=== PATIENT | female | born 1945 | race Caucasian/White ===

== ENCOUNTER 2018-12-16 08:42 | Emergency (ER) | payer MEDICARE, BC ==
--- NOTE | 2018-12-16 09:20 | ERPHSYRPT ---
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 pt states she typically awakens every morning dizzy and this am the dizziness lasted a little longer. pt stood up and walked any way and fell as she was walking. pt states she had severe stomach pains after she took codeine in the past. she states she has had percocet in the past without issues as she recalls. Occurred: this morning Reason for Fall: became dizzy Injuries/Pain Location: head, chest (right posterolateral ribs), back, lower Loss of Consciousness: no loss of consciousness Quality: sharpness, stabbing Severity of Pain-Max: moderate Severity of Pain-Current: moderate Modifying Factors: Improves With: movement Associated Symptoms (Fall): back pain, headache, other (right rib pain) Allergies/Adverse Reactions: prochlorperazine [From Compazine] Allergy (Severe, Verified 12/16/18 09:01) "COULDN'T TALK" codeine Allergy (Mild, Verified 12/16/18 09:01) STOMACH CRAMPS Home Medications: Latanoprost 2.5 ml OP DAILY 02/01/16 [History] Sotalol HCl [Sotalol] 120 mg PO BID 12/16/18 [History] Hx Tetanus, Diphtheria Vaccination/Date Given: No - Review of Systems Constitutional: No Symptoms Eyes: No Symptoms Ears, Nose, & Throat: No Symptoms Respiratory: No Symptoms Cardiac: No Symptoms Abdominal/Gastrointestinal: No Symptoms Genitourinary Symptoms: No Symptoms Musculoskeletal: Back Pain Skin: No Symptoms Neurological: Headache Psychological: No Symptoms Endocrine: No Symptoms Hematologic/Lymphatic: No Symptoms Immunological/Allergic: No Symptoms All Other Systems: Reviewed and Negative - Past Medical History Pertinent Past Medical History: Yes Neurological History: Seizures ENT History: Glaucoma Cardiac History: Arrhythmia Respiratory History: Asthma, Pneumonia Endocrine Medical History: No Pertinent History Musculoskeletal History: Arthritis GI Medical History: No Pertinent History History: No Pertinent History Psycho-Social History: No Pertinent History Female Reproductive Disorders: No Pertinent History - Past Surgical History Past Surgical History: Yes Neuro Surgical History: No Pertinent History Cardiac: Pacemaker Respiratory: No Pertinent History Gastrointestinal: Cholecystectomy Genitourinary: No Pertinent History Musculoskeletal: No Pertinent History Female Surgical History: No Pertinent History Other Surgical History: COLPOSCOPY, EYES. 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 coposcopy approx 10-15 yrs ago - Social History Smoking Status: Never smoker Exposure to second hand smoke: No Drug Use: none Patient Lives Alone: Yes - Female History Hx Now: No - Nursing Vital Signs Nursing Vital Signs: Initial Vital Signs Temperature 98.0 F 12/16/18 08:46 Pulse Rate 67 12/16/18 08:46 Respiratory Rate 20 12/16/18 08:46 Blood Pressure 174/89 12/16/18 08:46 O2 Sat by Pulse Oximetry 100 12/16/18 08:46 Pain Scale Pain Intensity [Back] 9 Pain Intensity 9 - [place] Coma Score Best Eye Response ([place]): (4) open spontaneously Best Verbal Response (Jai): (5) oriented Best Motor Response (Jai): (6) obeys commands [place] Total: 15 - Physical Exam General Appearance: mild distress, alert, anxiety Head Injury: no evidence of injury Eye Exam: PERRL/EOMI, eyes nml inspection ENT Exam: airway nml, nml ext.inspection Neck Exam: supple, trachea midline, full range of motion, normal alignment, normal inspection, No focal neuro deficit, No limited range of motion Respiratory/Chest Exam: normal breath sounds, rib tenderness (right posterolateral), No respiratory distress, No ecchymosis, No crepitus Cardiovascular Exam: normal heart sounds, regular rate/rhythm Gastrointestinal Exam: soft, normal bowel sounds, No tenderness Rectal Exam: not done Back Exam: normal inspection, normal range of motion, No CVA tenderness, No vertebral tenderness Extremity Exam: normal inspection, normal range of motion, pelvis stable Neurologic Exam: alert, oriented x 3, cooperative, 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 as tested, normal mood/affect Skin Exam: normal color, warm, dry SpO2 Interpretation: normal SpO2: 100 O2 Delivery: Room Air - Course Nursing assessment & vital signs reviewed: Yes Ordered Tests: Active Orders 24 hr Category Date Time Status HEAD WITHOUT CONTRAST [CT] Stat Exams 12/16/18 09:20 Completed LUMBAR LIMITED (2 OR 3 VIEWS) Stat Exams 12/16/18 09:21 Completed RIBS UNILATERAL Stat Exams 12/16/18 09:21 Completed Medication Summary Generic Name Dose Route Start Last Admin Trade Name Freq PRN Reason Stop Dose Admin Oxycodone/Acetaminophen 1 tab 12/16/18 10:41 Percocet Tablet 5/325mg PO 12/16/18 10:42 STAT STA - Progress Progress: unchanged, pain not gone completely, re-examined Progress Note: 12/16/18 10:43 ct head-negative rib xray-acute minimally displaced right rib fx 6,7,8 lumbar xray-negative for acute subluxation or fx Counseled pt/family regarding: diagnosis, need for follow-up, rad results - Departure Departure Disposition: Home Clinical Impression: Fall, Ribs, multiple fractures Condition: Stable Critical Care Time: No Referrals: BARTOLOME VILLA [Primary Care Provider] - Additional Instructions: apply ice to right ribs 3 times daily for 3 days. follow up with primary doctor for further management Prescriptions: Oxycodone HCl/Acetaminophen [Percocet 5-325 mg Tablet] 1 each PO Q12H PRN PRN # 10 tablet MDD 2 PRN Reason: Pain Cyclobenzaprine HCl 10 mg [Cyclobenzaprine 10 MG] 10 mg PO BID #10 tablet
--- NOTE | 2018-12-16 10:15 | XRAY ---
Exam: CT of the head without IV contrast from 12/16/2018. CTDI: 51.17 mGy Comparison: None. Indication: 73-year-old female fell striking posterior right side of head, patient is taking blood thinners. Technique: Non-IV contrast axial images were obtained through the brain. Reconstructed coronal and sagittal images were created and reviewed. Findings: The ventricles appear of normal size. No focal mass effect or midline shift is seen. I see no acute intracranial bleed or abnormal extra-axial fluid collection to suggest a subdural or epidural hematoma. Subtle deep white matter changes are seen within the bilateral periventricular and subcortical white matter suggesting minor microvascular disease. No discrete territorial low attenuation infarct or focal edema is seen. The cortical sulci and basilar cisterns appear unremarkable. I see no evidence of fracture of the calvarium of the skull. Minimal superficial soft tissue density is seen near the skin line within the upper posterior right side of the scalp. This might represent minimal focal scalp contusion. Correlate clinically. The visualized paranasal sinuses and mastoid air cells appear unremarkable. No mastoid effusion is seen. The orbits reveal no significant abnormality. Impression: 1. No acute intracranial bleed or other acute intracranial process is seen. 2. The calvarium of the skull appears intact revealing no skull fracture.
--- NOTE | 2018-12-16 10:19 | XRAY ---
Exam: 4 view right rib series from 12/16/2018. Comparison: None. Indication: 73-year-old female fell, complains of pain within right lower ribs. Findings: 2 AP images and both oblique views of the right rib cage were obtained. There are minimally displaced fractures of the posterior aspect of the right sixth rib and the posterior lateral aspect of the right eighth rib. In addition, there is a nondisplaced fracture of the posterior lateral aspect of the right seventh rib. I see no other right rib fracture or focal bone lesion. No pneumothorax or pleural effusion is seen. I believe there is minimal subsegmental atelectasis within the right lateral costophrenic angle projection. A small calcified granuloma is seen within the peripheral right upper lung field. The bones are demineralized. A portion of the left-sided cardiac pacemaker is seen. The lungs are hyperinflated. Mild double S-curve scoliosis within the thoracolumbar spine is seen. This is most pronounced at T12-L1 toward the right and L4 towards the left. Impression: 1. Acute appearing fractures of the posterior/posterior lateral right sixth, seventh, and eighth ribs, as discussed above. 2. Minimal atelectasis is seen within the right lateral costophrenic angle. 3. The lungs are somewhat hyperinflated. Correlate clinically regarding COPD.
--- NOTE | 2018-12-16 10:35 | XRAY ---
Exam: 3 view lumbar spine series from 12/16/2018. Comparison: None. Indication: Fall, low back pain. Findings: AP, lateral, and coned-down lateral film of the lumbosacral junction were obtained. There are 5 [id number] lumbar-type vertebra. There appears to be minimal dextroscoliosis centered at the thoracolumbar junction. There is also mild rotary levoscoliosis centered at L4. The bones are demineralized. I see no acute lumbar spine compression fracture. I believe there is minimal anterior subluxation of L4 with respect to both L3 and L5. This is likely due to posterior facet joint arthropathy which can be seen at the lower 3 lumbar interspace levels, greatest at L4-L5 and L5-S1. No definite spondylolysis is seen on the lateral images submitted. Some surgical clips are seen within the mid right paralumbar projection. Correlate with prior surgical history. No bone destruction is seen. The sacroiliac joints appear grossly unremarkable. Impression: 1. No acute lumbar spine compression fracture is seen. 2. There is minimal anterior subluxation of L4 with respect to both L3 and L5 on the lateral images. I believe this is most likely due to posterior facet joint arthropathy. See above. 3. Bone demineralization. 4. Mild S-shaped convexity within the lower thoracolumbar spine, as discussed above.
[2018-12-16] MEDS ORDERED: PERCOCET TABLET 5/325MG PO STA (10:41)
[2018-12-16] MEDS ORDERED: PERCOCET TABLET 5/325MG ONE (10:48)
[2018-12-16 10:53] VITALS: BP 171/80; PULSE 74; O2SAT 99
== END 2018-12-16 11:28 | disposition home or self-care (01) ==
LOC: ED 08:42
DX: S22.49XA Multiple fractures of ribs, unspecified side, initial encounter for closed fracture (principal); W01.190A Fall on same level from slipping, tripping and stumbling with subsequent striking against furniture, initial encounter; Z79.01 Long term (current) use of anticoagulants; S09.90XA Unspecified injury of head, initial encounter; G40.909 Epilepsy, unspecified, not intractable, without status epilepticus
CPT/HCPCS: 70450; 71100; 72100; 99284; A9270-GY

== ENCOUNTER 2023-08-30 08:20 | Observation (INO) | payer MEDICARE, BC ==
--- NOTE | 2023-08-30 08:53 | ERPHSYRPT ---
- History of Present Illness Time Seen by Provider: 08/30/23 08:45 Source: patient, family Exam Limitations: no limitations Patient Subjective Stated Complaint: pt c/o of afib since last night Triage Nursing Assessment: Pt brought to the ER by her , tachycardic with a fib, denies pain, pulses normal, skin n/w/d, slight dizziness, denies N&V, denies LOC, sees Dr. Pena for cardiology, has pacemaker with a battery, 10+ year history of afib Physician History: This is an 78-year-old white female patient who has known atrial fibrillation for approximately 10 years. Patient's primary care provider is Dr. Patiño and her national sales executive is Dr. Pena out of [facility]. Patient is on Xarelto and sotalol. Patient states that last night she noticed her heart racing a bit. She does not have chest pain and she denies shortness of breath. She was a little dizzy. Patient arrives to the emergency department today with atrial fibrillation and RVR with a heart rate in the 120s. Her systolic blood pressure is also in the 120s. Patient states that she has a pacemaker in place but it has a battery. Patient has no abdominal pain. She denies nausea vomiting diarrhea symptoms. Timing/Duration: yesterday Activities at Onset: none Quality: other (Denies chest pain) Severity of Pain-Max: none Severity of Pain-Current: none Nitro Today/Relief: no nitro taken today Aspirin Treatment Today: no aspirin today Associated Symptoms: denies symptoms (She is on Xarelto) Prior Chest Pain/Cardiac Workup: cardiac cath, echocardiography Allergies/Adverse Reactions: prochlorperazine [From Compazine] Allergy (Severe, Verified 08/30/23 08:41) "COULDN'T TALK" codeine Allergy (Mild, Verified 08/30/23 08:41) STOMACH CRAMPS Home Medications: Sotalol HCl [Sotalol] 120 mg PO BID 12/16/18 [History] Alendronate Sodium 70 mg [Fosamax 70 MG] 70 mg PO Q7D@0600 08/30/23 [History] Cholecalciferol (Vitamin D3) [Vitamin D3] 125 mcg PO DAILY 08/30/23 [History] Cyanocobalamin (Vitamin B-12) [Vitamin B-12] 1,000 mcg PO DAILY 08/30/23 [History] Hx Tetanus, Diphtheria Vaccination/Date Given: No Hx Influenza Vaccination/Date Given: Yes Hx Pneumococcal Vaccination/Date Given: Yes Travel Risk - International Travel Have you traveled outside of the country in past 3 weeks: No - Emerging Infectious Disease Are you exhibiting symptoms associated with any current EIDs: No - Review of Systems Constitutional: No Symptoms Eyes: No Symptoms Ears, Nose, & Throat: No Symptoms Respiratory: No Symptoms Cardiac: No Symptoms Abdominal/Gastrointestinal: No Symptoms Genitourinary Symptoms: No Symptoms Musculoskeletal: No Symptoms Skin: No Symptoms Neurological: Dizziness (Slight dizziness onset last evening) Psychological: No Symptoms Endocrine: No Symptoms Hematologic/Lymphatic: No Symptoms Immunological/Allergic: No Symptoms All Other Systems: Reviewed and Negative - Past Medical History Pertinent Past Medical History: Yes Neurological History: Seizures ENT History: Glaucoma Cardiac History: Arrhythmia Respiratory History: Asthma, Pneumonia Endocrine Medical History: No Pertinent History Musculoskeletal History: Arthritis GI Medical History: No Pertinent History History: No Pertinent History Psycho-Social History: No Pertinent History Female Reproductive Disorders: No Pertinent History - Past Surgical History Past Surgical History: Yes Neuro Surgical History: No Pertinent History Cardiac: Pacemaker Respiratory: No Pertinent History Gastrointestinal: Cholecystectomy Genitourinary: No Pertinent History Musculoskeletal: No Pertinent History Female Surgical History: No Pertinent History Other Surgical History: COLPOSCOPY, EYES. 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 coposcopy approx 10-15 yrs ago - Social History Smoking Status: Never smoker Exposure to second hand smoke: No Drug Use: none Patient Lives Alone: Yes - Social Determinants of Health Will the patient participate in the screening: Yes Do you worry about a steady place to live?: No Do you have any problems with any of the following?: No known problems In the past 12 months,have you had to go without utilities?: No Transportation Issues: No Has anyone in your support network made you feel unsafe?: No Have you or anyone in your house had to go without enough: No - Nursing Vital Signs Nursing Vital Signs: Initial Vital Signs Temperature 96.7 F 08/30/23 08:35 Pulse Rate 126 H 08/30/23 08:35 Respiratory Rate 16 08/30/23 08:35 Blood Pressure 123/95 08/30/23 08:35 O2 Sat by Pulse Oximetry 100 08/30/23 08:35 Pain Scale Pain Intensity 0 - Physical Exam General Appearance: no apparent distress, alert, anxiety Eye Exam: PERRL/EOMI, eyes nml inspection Ears, Nose, Throat Exam: normal ENT inspection, moist mucous membranes Neck Exam: normal inspection, non-tender, supple, full range of motion Respiratory Exam: normal breath sounds, lungs clear, No chest tenderness, No respiratory distress Cardiovascular Exam: tachycardia, irregular Gastrointestinal/Abdomen Exam: soft, normal bowel sounds, No tenderness Pelvic Exam: not done Rectal Exam: not done Back Exam: normal inspection, normal range of motion, No CVA tenderness, No prasanna tebral tenderness Extremity Exam: normal inspection, normal range of motion, pelvis stable Neurologic Exam: alert, oriented x 3, cooperative, flight radio officer II-XII nml as tested, normal mood/affect, nml cerebellar function, nml station & gait, sensation nml Skin Exam: normal color, warm, dry Lymphatic Exam: No adenopathy SpO2 Interpretation: normal SpO2: 100 O2 Delivery: Room Air - Course Nursing assessment & vital signs reviewed: Yes EKG Interpreted by Me: RATE (125), A-fib, NORMAL AXIS, NORMAL INTERVALS, NORMAL QRS, Other (PVC present. No acute ischemia on today's twelve-lead EKG. QTc is 41) Ordered Tests: Active Orders 24 hr Category Date Time Status Anodic Treater STAT Care 08/30/23 08:53 Active EKG-ER Only STAT Care 08/30/23 08:52 Active IV Insertion STAT Care 08/30/23 08:52 Active Pulse Oximetry (ED) STAT Care 08/30/23 08:52 Active CBC W DIFF Stat Lab 08/30/23 09:19 Completed CMP Stat Lab 08/30/23 09:19 Completed MAGNESIUM Stat Lab 08/30/23 09:19 Completed NT PRO BNPII Stat Lab 08/30/23 09:19 Completed TROPONIN Q4H Lab 08/30/23 09:19 Completed TROPONIN Q4H Lab 08/30/23 11:30 Completed TROPONIN Q4H Lab 08/30/23 17:00 Ordered TSH [TSH, 3RD Generation] Stat Lab 08/30/23 08:30 Completed UA W/RFX UR CULTURE Stat Lab 08/30/23 09:09 Ordered Medication Summary Generic Name Dose Route Start Last Admin Trade Name Freq PRN Reason Stop Dose Admin Sodium Chloride 500 mls @ 100 mls/hr 08/30/23 10:00 08/30/23 10:25 Sodium Chloride 0.9% 500 Ml IV 09/29/23 09:59 Not Given .Q5H CARLY Sodium Chloride 1,000 mls @ 100 mls/hr 08/30/23 10:30 08/30/23 10:29 Sodium Chloride 0.9% 1000 Ml IV 09/29/23 10:29 100 mls/hr .Q10H CARLY Administration Discontinued Medications Generic Name Dose Route Start Last Admin Trade Name Randal PRN Reason Stop Dose Admin Diltiazem HCl 15 mg 08/30/23 09:53 08/30/23 10:06 Diltiazem Hcl Iv 5 Mg/Ml Vial IV 08/30/23 09:54 15 mg STAT ONE Administration Diltiazem HCl Confirm 08/30/23 10:01 Diltiazem Hcl Iv 5 Mg/Ml Vial Administered 08/30/23 10:02 Dose 50 mg IV .STK-MED ONE Sodium Chloride Confirm 08/30/23 10:01 Sodium Chloride 0.9% 1000 Ml Administered 08/30/23 10:02 Dose 1,000 mls @ ud .ROUTE .STK-MED ONE Metoprolol Tartrate 5 mg 08/30/23 08:52 08/30/23 09:21 Metoprolol Tartrate 5 Mg/5 Ml Vial IV 08/30/23 08:53 5 mg STAT ONE Administration Metoprolol Tartrate Confirm 08/30/23 09:11 Metoprolol Tartrate 5 Mg/5 Ml Vial Administered 08/30/23 09:12 Dose 5 mg IV .STK-MED ONE Lab/Rad Data: Laboratory Result Diagrams 08/30/23 09:19 08/30/23 09:19 Laboratory Results 08/30/23 08/30/23 08/30/23 Range/Units 11:30 09:19 09:19 WBC (3.98-10.04) x10^3/uL RBC (3.93-5.22) x10^6/uL Hgb (11.2-15.7) g/dL Hct (34.1-44.9) % MCV (79.4-94.8) fL MCH (25.6-32.2) pg MCHC (32.2-35.5) g/dL RDW (11.7-14.4) % Plt Count (182-369) x10^3/uL MPV (9.4-12.3) fL Gran % (34.0-71.1) % Immature Gran % (Auto) (0.001-0.429) % Nucleat RBC Rel Count (0.00-0.2) % Eos # (Auto) (0.04-0.36) x10^3/uL Immature Gran # (Auto) (0.001-0.031) x10^3u/L Absolute Lymphs (auto) (1.18-3.74) x10^3/uL Absolute Monos (auto) (0.24-0.86) x10^3/uL Absolute Nucleated RBC (0.00-0.012) x10^3u/L Lymphocytes % (19.3-51.7) % Monocytes % (4.7-12.5) % Eosinophils % (0.7-5.8) % Basophils % (0.1-1.2) % Absolute Granulocytes (1.56-6.13) x10^3/uL Basophils # (0.01-0.08) x10^3/uL Sodium (135-145) mmol/L Potassium (3.5-5.1) mmol/L Chloride (98-107) mmol/L Carbon Dioxide (22-30) mmol/L Anion Gap (5-15) MEQ/L BUN (7-17) mg/dL Creatinine (0.52-1.04) mg/dL Estimated GFR ML/MIN Glucose (74-106) mg/dL Calcium (8.4-10.2) mg/dL Magnesium (1.6-2.3) mg/dL Total Bilirubin (0.2-1.3) mg/dL AST (14-36) U/L ALT (0-35) U/L Alkaline Phosphatase (38-126) U/L Troponin I 0.039 H* 0.042 H* (0.000-0.033) ng/mL NT-Pro-B Natriuret Pep 5700 (<300) pg/mL Serum Total Protein (6.3-8.2) g/dL Albumin (3.5-5.0) g/dL Free T4 (0.78-2.19) ng/dL TSH 3rd Generation (0.470-4.680) mIU/L 08/30/23 08/30/23 08/30/23 Range/Units 09:19 09:19 08:30 WBC 6.9 (3.98-10.04) x10^3/uL RBC 4.09 (3.93-5.22) x10^6/uL Hgb 13.1 (11.2-15.7) g/dL Hct 40.1 (34.1-44.9) % MCV 98.0 H (79.4-94.8) fL MCH 32.0 (25.6-32.2) pg MCHC 32.7 (32.2-35.5) g/dL RDW 13.0 (11.7-14.4) % Plt Count 264 (182-369) x10^3/uL MPV 9.9 (9.4-12.3) fL Gran % 75.0 H (34.0-71.1) % Immature Gran % (Auto) 0.1 (0.001-0.429) % Nucleat RBC Rel Count 0.0 (0.00-0.2) % Eos # (Auto) 0.07 (0.04-0.36) x10^3/uL Immature Gran # (Auto) 0.01 (0.001-0.031) x10^3u/L Absolute Lymphs (auto) 1.13 L (1.18-3.74) x10^3/uL Absolute Monos (auto) 0.49 (0.24-0.86) x10^3/uL Absolute Nucleated RBC 0.00 (0.00-0.012) x10^3u/L Lymphocytes % 16.4 L (19.3-51.7) % Monocytes % 7.1 (4.7-12.5) % Eosinophils % 1.0 (0.7-5.8) % Basophils % 0.4 (0.1-1.2) % Absolute Granulocytes 5.16 (1.56-6.13) x10^3/uL Basophils # 0.03 (0.01-0.08) x10^3/uL Sodium 138 (135-145) mmol/L Potassium 4.3 (3.5-5.1) mmol/L Chloride 106 (98-107) mmol/L Carbon Dioxide 21 L (22-30) mmol/L Anion Gap 15.0 (5-15) MEQ/L BUN 20 H (7-17) mg/dL Creatinine 1.23 H (0.52-1.04) mg/dL Estimated GFR 44.4 ML/MIN Glucose 108 H (74-106) mg/dL Calcium 9.2 (8.4-10.2) mg/dL Magnesium 2.1 (1.6-2.3) mg/dL Total Bilirubin 0.70 (0.2-1.3) mg/dL AST 29 (14-36) U/L ALT 15 (0-35) U/L Alkaline Phosphatase 46 (38-126) U/L Troponin I (0.000-0.033) ng/mL NT-Pro-B Natriuret Pep (<300) pg/mL Serum Total Protein 7.6 (6.3-8.2) g/dL Albumin 4.6 (3.5-5.0) g/dL Free T4 1.17 (0.78-2.19) ng/dL TSH 3rd Generation (0.470-4.680) mIU/L 08/30/23 Range/Units 08:30 WBC (3.98-10.04) x10^3/uL RBC (3.93-5.22) x10^6/uL Hgb (11.2-15.7) g/dL Hct (34.1-44.9) % MCV (79.4-94.8) fL MCH (25.6-32.2) pg MCHC (32.2-35.5) g/dL RDW (11.7-14.4) % Plt Count (182-369) x10^3/uL MPV (9.4-12.3) fL Gran % (34.0-71.1) % Immature Gran % (Auto) (0.001-0.429) % Nucleat RBC Rel Count (0.00-0.2) % Eos # (Auto) (0.04-0.36) x10^3/uL Immature Gran # (Auto) (0.001-0.031) x10^3u/L Absolute Lymphs (auto) (1.18-3.74) x10^3/uL Absolute Monos (auto) (0.24-0.86) x10^3/uL Absolute Nucleated RBC (0.00-0.012) x10^3u/L Lymphocytes % (19.3-51.7) % Monocytes % (4.7-12.5) % Eosinophils % (0.7-5.8) % Basophils % (0.1-1.2) % Absolute Granulocytes (1.56-6.13) x10^3/uL Basophils # (0.01-0.08) x10^3/uL Sodium (135-145) mmol/L Potassium (3.5-5.1) mmol/L Chloride (98-107) mmol/L Carbon Dioxide (22-30) mmol/L Anion Gap (5-15) MEQ/L BUN (7-17) mg/dL Creatinine (0.52-1.04) mg/dL Estimated GFR ML/MIN Glucose (74-106) mg/dL Calcium (8.4-10.2) mg/dL Magnesium (1.6-2.3) mg/dL Total Bilirubin (0.2-1.3) mg/dL AST (14-36) U/L ALT (0-35) U/L Alkaline Phosphatase (38-126) U/L Troponin I (0.000-0.033) ng/mL NT-Pro-B Natriuret Pep (<300) pg/mL Serum Total Protein (6.3-8.2) g/dL Albumin (3.5-5.0) g/dL Free T4 (0.78-2.19) ng/dL TSH 3rd Generation 1.965 (0.470-4.680) mIU/L - Progress Progress: improved, re-examined Air Movement: good Progress Note: 08/30/23 11:26 My medical decision making and the assignment of moderate complexity to this patient's medical issue is based on review of the patient's past medical history, review of the patient's medication list, review the patient drug allergy list, history present illness and physical findings on examination. This patient's workup includes placement of intravenous line, infusion of beta-[id number] Lopressor, CBC, CMP, twelve-lead EKG, magnesium level, urinalysis, troponin level, BNP The differential diagnosis includes but is not limited to electrolyte abnormalities, A-fib with RVR, congestive heart failure, thyroid abnormalities, anemia, myocardial infarction 08/30/23 11:28 We have placed 2 phone calls to the patient's national sales executive office, Dr. Pena. The office staff attempted to page him. After 20 minutes, he had not called back and we called the office again. They stated that he is off today but he takes his own call. We will wait for the repeat 3-hour troponin level. 08/30/23 12:28 I reviewed and interpreted the patient's laboratory data results. The patient has an elevated troponin level. Is slightly out of the normal range. I think this is more related to the stress of having a rapid heart rate rather than significant coronary artery disease. The repeat troponin level dropped to 0.039 from 0.042. The patient does not have chest pain. Patient's BNP is elevated at 5700. She required some fluid infusion once her blood pressure dropped when we provided her with 15 mg of intravenous Cardizem. The remainder of the laboratory workup does not show any acute or emergent medical issue. I discussed this patient's history present illness, presenting complaint, ph ysical findings and the results of the laboratory and EKG findings and the patient's response to Lopressor and to the Cardizem. He agrees that we will place this patient in observation and continue watching the troponin levels as well as continued medication for treating her A-fib with RVR. 08/30/23 12:[address] Bar regarding the significant drop in the patient's blood pressure with the intravenous Cardizem. He states to put this patient on low- dose, short acting diltiazem oral medication. Blood Culture(s) Obtained: No Antibiotics given: No Counseled pt/family regarding: lab results, diagnosis Medical Desision Making - Independent Historian Additional History obtained from: Spouse - Diagnostic Testing Diagnostic test were ordered, analyzed, and reviewed by me: Yes - Risk of complications The pt has a high risk of morbidity or mortality based on: Decision regarding hospitilization or escalation of hosp level of care - Departure Departure Disposition: Observation Clinical Impression: Atrial fibrillation with RVR, Elevated troponin I level Condition: Fair Critical Care Time: Yes Critical Care Time(excluding separately billable procedures): Critical 30-74 mins (60 minutes) Referrals: PAULINE PATIÑO [Primary Care Provider] - Follow up/PCP as directed
[2023-08-30] MEDS ORDERED: LOPRESSOR INJECTION IV ONE (09:11)
[2023-08-30 09:19] LABS: Absolute Neutrophil Ct (ANC) 5.16 x10^3/uL (1.56-6.13); BASOPHIL % 0.4 % (0.1-1.2); Basophil (Absolute #) 0.03 x10^3/uL (0.01-0.08); Eosinophil (Absolute #) 0.07 x10^3/uL (0.04-0.36); Hematocrit 40.1 % (34.1-44.9); Hemoglobin 13.1 g/dL (11.2-15.7); IMMATURE GRAN # 0.01 x10^3u/L (0.001-0.031); IMMATURE GRAN % 0.1 % (0.001-0.429); Lymphocyte (Absolute #) 1.13 x10^3/uL (1.18-3.74); Lymphocytes % 16.4 % (19.3-51.7); Mean Corpuscular Hgb Concent. 32.7 g/dL (32.2-35.5); Mean Platelet Volume 9.9 fL (9.4-12.3); Monocyte (Absolute #) 0.49 x10^3/uL (0.24-0.86); Monocytes % 7.1 % (4.7-12.5); Platelet Count 264 x10^3/uL (182-369); Red Blood Count 4.09 x10^6/uL (3.93-5.22); White Blood Count 6.9 x10^3/uL (3.98-10.04)
[2023-08-30] MEDS: LOPRESSOR INJECTION IV ONE (09:21)
[2023-08-30 09:33] LABS: ALBUMIN 4.6 g/dL (3.5-5.0); BILIRUBIN,TOTAL 0.7 mg/dL (0.2-1.3); Calcium 9.2 mg/dL (8.4-10.2); Creatinine 1 1.23 mg/dL (0.52-1.04); EST GLOMERULAR FILTRATION RATE 44.4 ML/MIN; MAGNESIUM 2.1 mg/dL (1.6-2.3); Potassium 4.3 mmol/L (3.5-5.1); Total Protein 7.6 g/dL (6.3-8.2)
[2023-08-30] MEDS ORDERED: Sodium Chloride 0.9% 1000 ML 1,000 ML ONE (10:01)
[2023-08-30] MEDS ORDERED: Cardizem IV 50 MG/10 ML IV ONE (10:01)
[2023-08-30] MEDS: Cardizem IV 50 MG/10 ML IV ONE (10:06)
[2023-08-30] MEDS: Sodium Chloride 0.9% 500 ML 500 ML IV SCH (10:25)
[2023-08-30] MEDS: Sodium Chloride 0.9% 1000 ML 1,000 ML IV SCH ×2 (10:29→15:57)
[2023-08-30 12:42] LABS: Appearance Clear (Clear); Bacteria None Seen /HPF (None Seen); Bilirubin Negative (Negative); Blood Negative (Negative); Epithelial Cells None Seen /HPF (None Seen); Glucose, Urine Negative (Negative); Hyaline Casts NONE SEEN /LPF (0-2); Ketones 15 (Negative); Leukocyte Esterase Negative (Negative); Nitrite Negative (Negative); Ph 6.5 (4.6-8.0); Protein,Urine Dip Negative (Negative); RBC 0-2 /HPF (0-5); Specific Gravity 1.015 (1.005-1.030); Urobilinogen 0.2 mg/dL (0.2); WBC 0-2 /HPF (0-5)
[2023-08-30 12:44] LABS: ADD URINE CULTURE? NO (NO)
[2023-08-30] MEDS: Cardizem 30 MG PO ONE (12:51)
[2023-08-30] MEDS ORDERED: TYLENOL 325 MG PO PRN (14:28)
--- NOTE | 2023-08-30 14:58 | PCM.HP ---
History of Present Illness - Chief Complaint Chief Complaint: A-fib with RVR Date: 08/30/23 History of Present Illness: is an 78-year-old white female patient who has known atrial fibrillation for approximately 10 years. Patient's primary care provider is Dr. Patiño and her rate and cost analyst is Dr. Pena out of [facility]. Patient is on Xarelto and sotalol. Patient states that last night she noticed her heart racing a bit. She does not have chest pain and she denies shortness of breath. She was a little dizzy. Patient arrives to the emergency department today with atrial fibrillation and RVR with a heart rate in the 120s. Her systolic blood pressure is also in the 120s. Patient states that she has a pacemaker in place but it has a battery and has been like this for 10 yrs. She was given oral and IV meds to regulate heart rhythm in ER. Will continue oral medication IP. Cardilogy consulted. Trops trending down. She denies CP, SOB, Abd. pain, N/V/D. - Review of Systems Constitutional: No Fever, No Chills Eyes: No Symptoms Ears, Nose, & Throat: No Symptoms Respiratory: No Cough, No Short Of Breath Cardiac: Palpitations, No Chest Pain, No Edema, No Syncope Abdominal/Gastrointestinal: No Abdominal Pain, No Nausea, No Vomiting, No Diarrhea Genitourinary Symptoms: No Dysuria Musculoskeletal: No Back Pain, No Neck Pain Skin: No Rash Neurological: No Dizziness, No Focal Weakness, No Sensory Changes Psychological: No Symptoms Endocrine: No Symptoms Hematologic/Lymphatic: No Symptoms Immunological/Allergic: No Symptoms Medications & Allergies Home Medications: Home Medication List Rivaroxaban 10 mg Tablet [Xarelto 10 mg Tablet] 20 mg PO DAILY #30 tablet 02/02/16 [Rx Confirmed 08/30/23] Sotalol HCl [Sotalol] 120 mg PO BID 12/16/18 [History Confirmed 08/30/23] Alendronate Sodium 70 mg [Fosamax 70 MG] 70 mg PO Q7D@0600 08/30/23 [History Confirmed 08/30/23] Cholecalciferol (Vitamin D3) [Vitamin D3] 125 mcg PO DAILY 08/30/23 [History Confirmed 08/30/23] Cyanocobalamin (Vitamin B-12) [Vitamin B-12] 1,000 mcg PO DAILY 08/30/23 [History Confirmed 08/30/23] Allergies/Adverse Reactions: Allergies Allergy/AdvReac Type Severity Reaction Status Date / Time prochlorperazine Allergy Severe Verified 08/30/23 08:41 [From Compazine] codeine Allergy Mild Verified 08/30/23 08:41 - Past Medical History Past Medical History: Yes Neurological History: Seizures ENT History: Glaucoma Cardiac History: Arrhythmia Respiratory History: Asthma, Pneumonia Endocrine Medical History: No Pertinent History Musculoskelatal History: Arthritis GI Medical History: No Pertinent History History: No Pertinent History Pyscho-Social History: No Pertinent History Reproductive Disorders: No Pertinent History - Past Surgical History Past Surgical History: Yes Neuro Surgical History: No Pertinent History Cardiac History: Pacemaker Respiratory Surgery: No Pertinent History GI Surgical History: Cholecystectomy Genitourinary Surgical Hx: No Pertinent History Musculskeletal Surgical Hx: No Pertinent History Female Surgical History: No Pertinent History Other Surgical History: COLPOSCOPY, EYES. 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 coposcopy approx 10-15 yrs ago - Social History Smoking Status: Never smoker Exposure to second hand smoke: No Alcohol: Occasionally Drug Use: none - Social Determinants of Health Will the patient participate in the screening: Yes Do you worry about a steady place to live?: No Do you have any problems with any of the following?: No known problems In the past 12 months,have you had to go without utilities?: No Have you or anyone in your house had to go without enough: No Transportation Issues: No Has anyone in your support network made you feel unsafe?: No - Physical Exam Vital Signs: Vital Signs - 24 hr Temp Pulse Resp BP BP Pulse Ox 08/30/23 14:18 97.1 F 123 H 19 115/69 97 08/30/23 13:30 120 H 20 101/81 98 08/30/23 13:15 128 H 15 100/67 97 08/30/23 13:00 123 H 16 104/86 99 08/30/23 12:45 124 H 13 113/83 99 08/30/23 12:40 100 08/30/23 12:15 123 H 16 105/69 100 08/30/23 12:00 125 H 17 109/69 99 08/30/23 11:45 105 H 13 99/65 98 08/30/23 11:15 78 19 98/75 98 08/30/23 11:12 97 H 21 102/69 98 08/30/23 11:00 93 H 17 92/59 08/30/23 10:46 86 19 97/50 100 08/30/23 10:36 78 18 96/53 100 08/30/23 10:30 73 17 80/59 08/30/23 10:19 77 18 79/54 98 08/30/23 10:15 74 22 74/50 98 08/30/23 10:13 67 21 83/46 93 L 08/30/23 10:10 77 38 H 74/44 08/30/23 10:09 89 22 88/60 08/30/23 10:00 91 H 31 H 103/46 100 08/30/23 09:30 117 H 17 101/70 99 08/30/23 09:07 100 08/30/23 09:00 115 H 16 126/97 08/30/23 08:35 96.7 F 126 H 16 123/95 100 General Appearance: no apparent distress, alert Neurologic Exam: alert, oriented x 3, cooperative, normal mood/affect, nml cerebellar function, nml station & gait, sensation nml, No motor deficits Eye Exam: PERRL/EOMI, eyes nml inspection Ears, Nose, Throat Exam: normal ENT inspection, TMs normal, pharynx normal, moist mucous membranes Neck Exam: normal inspection, non-tender, supple, full range of motion Respiratory Exam: normal breath sounds, lungs clear, No respiratory distress Cardiovascular Exam: normal heart sounds, normal peripheral pulses, irregular Gastrointestinal/Abdomen Exam: soft, normal bowel sounds, No tenderness, No mass Back Exam: normal inspection, normal range of motion, No CVA tenderness, No vertebral tenderness Extremity Exam: normal inspection, normal range of motion, pelvis stable Skin Exam: normal color, warm, dry, No rash Lymphatic Exam: No adenopathy Results - Labs Lab/Micro Results: Lab Results-Last 24 Hours 08/30/23 08/30/23 08/30/23 Range/Units 08:30 08:30 09:09 WBC (3.98-10.04) x10^3/uL RBC (3.93-5.22) x10^6/uL Hgb (11.2-15.7) g/dL Hct (34.1-44.9) % MCV (79.4-94.8) fL MCH (25.6-32.2) pg MCHC (32.2-35.5) g/dL RDW (11.7-14.4) % Plt Count (182-369) x10^3/uL MPV (9.4-12.3) fL Gran % (34.0-71.1) % Immature Gran % (Auto) (0.001-0.429) % Nucleat RBC Rel Count (0.00-0.2) % Eos # (Auto) (0.04-0.36) x10^3/uL Immature Gran # (Auto) (0.001-0.031) x10^3u/L Absolute Lymphs (auto) (1.18-3.74) x10^3/uL Absolute Monos (auto) (0.24-0.86) x10^3/uL Absolute Nucleated RBC (0.00-0.012) x10^3u/L Lymphocytes % (19.3-51.7) % Monocytes % (4.7-12.5) % Eosinophils % (0.7-5.8) % Basophils % (0.1-1.2) % Absolute Granulocytes (1.56-6.13) x10^3/uL Basophils # (0.01-0.08) x10^3/uL Sodium (135-145) mmol/L Potassium (3.5-5.1) mmol/L Chloride (98-107) mmol/L Carbon Dioxide (22-30) mmol/L Anion Gap (5-15) MEQ/L BUN (7-17) mg/dL Creatinine (0.52-1.04) mg/dL Estimated GFR ML/MIN Glucose (74-106) mg/dL Calcium (8.4-10.2) mg/dL Magnesium (1.6-2.3) mg/dL Total Bilirubin (0.2-1.3) mg/dL AST (14-36) U/L ALT (0-35) U/L Alkaline Phosphatase (38-126) U/L Troponin I (0.000-0.033) ng/mL NT-Pro-B Natriuret Pep (<300) pg/mL Serum Total Protein (6.3-8.2) g/dL Albumin (3.5-5.0) g/dL Free T4 1.17 (0.78-2.19) ng/dL TSH 3rd Generation 1.965 (0.470-4.680) mIU/L Urine Color Yellow (Yellow) Urine Appearance Clear (Clear) Urine pH 6.5 (4.6-8.0) Ur Specific [place] 1.015 (1.005-1.030) Urine Protein Negative (Negative) Urine Glucose (UA) Negative (Negative) mg/dL Urine Ketones 15 A (Negative) Urine Blood Negative (Negative) Urine Nitrite Negative (Negative) Urine Bilirubin Negative (Negative) Urine Urobilinogen 0.2 (0.2) mg/dL Ur Leukocyte Esterase Negative (Negative) U Hyaline Cast (Auto) NONE SEEN (0-2) /LPF Urine Microscopic RBC 0-2 (0-5) /HPF Urine Microscopic WBC 0-2 (0-5) /HPF Ur Epithelial Cells None Seen (None Seen) /HPF Urine Bacteria None Seen (None Seen) /HPF Urine Culture Reflexed NO (NO) 08/30/23 08/30/23 08/30/23 Range/Units 09:19 09:19 09:19 WBC 6.9 (3.98-10.04) x10^3/uL RBC 4.09 (3.93-5.22) x10^6/uL Hgb 13.1 (11.2-15.7) g/dL Hct 40.1 (34.1-44.9) % MCV 98.0 H (79.4-94.8) fL MCH 32.0 (25.6-32.2) pg MCHC 32.7 (32.2-35.5) g/dL RDW 13.0 (11.7-14.4) % Plt Count 264 (182-369) x10^3/uL MPV 9.9 (9.4-12.3) fL Gran % 75.0 H (34.0-71.1) % Immature Gran % (Auto) 0.1 (0.001-0.429) % Nucleat RBC Rel Count 0.0 (0.00-0.2) % Eos # (Auto) 0.07 (0.04-0.36) x10^3/uL Immature Gran # (Auto) 0.01 (0.001-0.031) x10^3u/L Absolute Lymphs (auto) 1.13 L (1.18-3.74) x10^3/uL Absolute Monos (auto) 0.49 (0.24-0.86) x10^3/uL Absolute Nucleated RBC 0.00 (0.00-0.012) x10^3u/L Lymphocytes % 16.4 L (19.3-51.7) % Monocytes % 7.1 (4.7-12.5) % Eosinophils % 1.0 (0.7-5.8) % Basophils % 0.4 (0.1-1.2) % Absolute Granulocytes 5.16 (1.56-6.13) x10^3/uL Basophils # 0.03 (0.01-0.08) x10^3/uL Sodium 138 (135-145) mmol/L Potassium 4.3 (3.5-5.1) mmol/L Chloride 106 (98-107) mmol/L Carbon Dioxide 21 L (22-30) mmol/L Anion Gap 15.0 (5-15) MEQ/L BUN 20 H (7-17) mg/dL Creatinine 1.23 H (0.52-1.04) mg/dL Estimated GFR 44.4 ML/MIN Glucose 108 H (74-106) mg/dL Calcium 9.2 (8.4-10.2) mg/dL Magnesium 2.1 (1.6-2.3) mg/dL Total Bilirubin 0.70 (0.2-1.3) mg/dL AST 29 (14-36) U/L ALT 15 (0-35) U/L Alkaline Phosphatase 46 (38-126) U/L Troponin I 0.042 H* (0.000-0.033) ng/mL NT-Pro-B Natriuret Pep (<300) pg/mL Serum Total Protein 7.6 (6.3-8.2) g/dL Albumin 4.6 (3.5-5.0) g/dL Free T4 (0.78-2.19) ng/dL TSH 3rd Generation (0.470-4.680) mIU/L Urine Color (Yellow) Urine Appearance (Clear) Urine pH (4.6-8.0) Ur Specific [place] (1.005-1.030) Urine Protein (Negative) Urine Glucose (UA) (Negative) mg/dL Urine Ketones (Negative) Urine Blood (Negative) Urine Nitrite (Negative) Urine Bilirubin (Negative) Urine Urobilinogen (0.2) mg/dL Ur Leukocyte Esterase (Negative) U Hyaline Cast (Auto) (0-2) /LPF Urine Microscopic RBC (0-5) /HPF Urine Microscopic WBC (0-5) /HPF Ur Epithelial Cells (None Seen) /HPF Urine Bacteria (None Seen) /HPF Urine Culture Reflexed (NO) 08/30/23 08/30/23 Range/Units 09:19 11:30 WBC (3.98-10.04) x10^3/uL RBC (3.93-5.22) x10^6/uL Hgb (11.2-15.7) g/dL Hct (34.1-44.9) % MCV (79.4-94.8) fL MCH (25.6-32.2) pg MCHC (32.2-35.5) g/dL RDW (11.7-14.4) % Plt Count (182-369) x10^3/uL MPV (9.4-12.3) fL Gran % (34.0-71.1) % Immature Gran % (Auto) (0.001-0.429) % Nucleat RBC Rel Count (0.00-0.2) % Eos # (Auto) (0.04-0.36) x10^3/uL Immature Gran # (Auto) (0.001-0.031) x10^3u/L Absolute Lymphs (auto) (1.18-3.74) x10^3/uL Absolute Monos (auto) (0.24-0.86) x10^3/uL Absolute Nucleated RBC (0.00-0.012) x10^3u/L Lymphocytes % (19.3-51.7) % Monocytes % (4.7-12.5) % Eosinophils % (0.7-5.8) % Basophils % (0.1-1.2) % Absolute Granulocytes (1.56-6.13) x10^3/uL Basophils # (0.01-0.08) x10^3/uL Sodium (135-145) mmol/L Potassium (3.5-5.1) mmol/L Chloride (98-107) mmol/L Carbon Dioxide (22-30) mmol/L Anion Gap (5-15) MEQ/L BUN (7-17) mg/dL Creatinine (0.52-1.04) mg/dL Estimated GFR ML/MIN Glucose (74-106) mg/dL Calcium (8.4-10.2) mg/dL Magnesium (1.6-2.3) mg/dL Total Bilirubin (0.2-1.3) mg/dL AST (14-36) U/L ALT (0-35) U/L Alkaline Phosphatase (38-126) U/L Troponin I 0.039 H* (0.000-0.033) ng/mL NT-Pro-B Natriuret Pep 5700 (<300) pg/mL Serum Total Protein (6.3-8.2) g/dL Albumin (3.5-5.0) g/dL Free T4 (0.78-2.19) ng/dL TSH 3rd Generation (0.470-4.680) mIU/L Urine Color (Yellow) Urine Appearance (Clear) Urine pH (4.6-8.0) Ur Specific [place] (1.005-1.030) Urine Protein (Negative) Urine Glucose (UA) (Negative) mg/dL Urine Ketones (Negative) Urine Blood (Negative) Urine Nitrite (Negative) Urine Bilirubin (Negative) Urine Urobilinogen (0.2) mg/dL Ur Leukocyte Esterase (Negative) U Hyaline Cast (Auto) (0-2) /LPF Urine Microscopic RBC (0-5) /HPF Urine Microscopic WBC (0-5) /HPF Ur Epithelial Cells (None Seen) /HPF Urine Bacteria (None Seen) /HPF Urine Culture Reflexed (NO) - Other Procedures and Tests Respiratory Therapy 08/30/23 14:28 EKG REPEAT IN AM Assessment/Plan (1) Atrial fibrillation with RVR Current Visit: Yes Status: Acute Assessment & Plan: - In ER gave diltiazem 15mg IV X1, metoprolol 5mg IV x1, and Diltiazem 30mg PO x1 - TELE - Continued a-fib RVR on admission HR 120's - Continue cardizem 30mg PO QID - Cardiology consult - has pacemaker with battery per pt. > 10 yrs - admits to dizziness with standing. - heart healthy diet Code(s): I48.91 - UNSPECIFIED ATRIAL FIBRILLATION (2) Elevated troponin I level Current Visit: Yes Status: Acute Assessment & Plan: - trending down, Trop. 0.042, 0.039- trend - denies CP - 2:2 a-fib RVR - cardiology consult Code(s): R79.89 - OTHER SPECIFIED ABNORMAL FINDINGS OF BLOOD CHEMISTRY (3) EWELINA (acute kidney injury) Current Visit: Yes Status: Acute Assessment & Plan: - Creat 1.23- baseline normal - NS @ 50ml/hr gentle hydration d/t heart hx VTE: Xarelto Next of KIN: D/C plan: 1-2 days Code status: Full Code(s): N17.9 - ACUTE KIDNEY FAILURE, UNSPECIFIED
[2023-08-30] MEDS: Cardizem 30 MG PO SCH (15:52)
[2023-08-30] MEDS: Betapace 80 MG PO SCH (22:52)
[2023-08-31 06:09] LABS: Absolute Neutrophil Ct (ANC) 3.72 x10^3/uL (1.56-6.13); BASOPHIL % 0.3 % (0.1-1.2); Basophil (Absolute #) 0.02 x10^3/uL (0.01-0.08); Eosinophil % 2.1 % (0.7-5.8); Eosinophil (Absolute #) 0.12 x10^3/uL (0.04-0.36); Hematocrit 35.6 % (34.1-44.9); Hemoglobin 11.5 g/dL (11.2-15.7); IMMATURE GRAN # 0.01 x10^3u/L (0.001-0.031); IMMATURE GRAN % 0.2 % (0.001-0.429); Lymphocyte (Absolute #) 1.45 x10^3/uL (1.18-3.74); Lymphocytes % 25.2 % (19.3-51.7); Mean Cell Volume 96.7 fL (79.4-94.8); Mean Corpuscular Hemoglobin 31.3 pg (25.6-32.2); Mean Corpuscular Hgb Concent. 32.3 g/dL (32.2-35.5); Mean Platelet Volume 10.3 fL (9.4-12.3); Monocyte (Absolute #) 0.44 x10^3/uL (0.24-0.86); Monocytes % 7.6 % (4.7-12.5); Neutrophil % 64.6 % (34.0-71.1); Platelet Count 247 x10^3/uL (182-369); Red Blood Count 3.68 x10^6/uL (3.93-5.22); Red Cell Distribution Width 13.4 % (11.7-14.4); White Blood Count 5.8 x10^3/uL (3.98-10.04)
[2023-08-31 06:29] LABS: ALBUMIN 3.8 g/dL (3.5-5.0); ANION GAP 10.2 MEQ/L (5-15); BILIRUBIN,TOTAL 0.6 mg/dL (0.2-1.3); Calcium 8.4 mg/dL (8.4-10.2); Creatinine 1 0.91 mg/dL (0.52-1.04); EST GLOMERULAR FILTRATION RATE 63.8 ML/MIN; Potassium 3.9 mmol/L (3.5-5.1); Total Protein 6.7 g/dL (6.3-8.2)
[2023-08-31 07:21] VITALS: O2SAT 99
[2023-08-31] MEDS: XARELTO 10 MG TABLET PO SCH (10:15)
[2023-08-31] MEDS: Vitamin B-12 500 MCG PO SCH (10:15)
[2023-08-31] MEDS: VITAMIN D PO SCH (10:15)
--- NOTE | 2023-08-31 11:25 | PCM.DS ---
Discharge Summary Date of Admission: 08/30/23 14:11 Date of Discharge: 08/31/23 Admitting Physician: LELE PERALTA MD Consults: Consults on Case 08/30/23 14:49 Consult Cardiology ROUTINE Primary Care Provider: PAULINE PAUL Allergies Allergies prochlorperazine [From Compazine] Allergy (Severe, Verified 08/30/23 08:41) "COULDN'T TALK" codeine Allergy (Mild, Verified 08/30/23 08:41) STOMACH CRAMPS Hospital Summary - Hospital Course Hospital Course: 08/30/23 is an 78-year-old white female patient who has known atrial fibrillation for approximately 10 years. Patient's primary care provider is Dr. Paul and her plastic machine operator is Dr. Pena out of [facility]. Patient i s on Xarelto and sotalol. Patient states that last night she noticed her heart racing a bit. She does not have chest pain and she denies shortness of breath. She was a little dizzy. Patient arrives to the emergency department today with atrial fibrillation and RVR with a heart rate in the 120s. Her systolic blood pressure is also in the 120s. Patient states that she has a pacemaker in place but it has a battery and has been like this for 10 yrs. She was given oral and IV meds to regulate heart rhythm in ER. Will continue oral medication IP. Cardilogy consulted. Trops trending down. She denies CP, SOB, Abd. pain, N/V/D. 08/31/23 Pt sitting up in chair. She is anxious to leave today. Awaiting cardiology consult. Heart rhythm converted last night to NSR in the 60's. EWELINA has resolved with IVF. She explains she feels much better today. A-fib RVR likely 2:2 dehydration. She denies CP, SOB, Abd pain, N/V/D. If ok with cardiology may d/c today. - Vitals & Intake/Output Vital Signs: Vital Signs Temperature 97.1 F 08/31/23 07:00 Pulse Rate 67 08/31/23 07:00 Respiratory Rate 25 H 08/31/23 07:00 Blood Pressure 119/56 08/31/23 07:00 O2 Sat by Pulse Oximetry 99 08/31/23 07:00 Intake & Output: Intake & Output 08/28/23 08/29/23 08/30/23 08/31/23 11:59 11:59 11:59 11:59 Intake Total 1300 Balance 1300 Weight 54.431 kg 52.5 kg - Lab Result Diagrams: 08/31/23 05:25 08/31/23 05:25 Lab Results-Last 24 Hrs: Lab Results-Last 24 Hours 08/30/23 08/30/23 08/30/23 Range/Units 08:30 08:30 08:30 WBC (3.98-10.04) x10^3/uL RBC (3.93-5.22) x10^6/uL Hgb (11.2-15.7) g/dL Hct (34.1-44.9) % MCV (79.4-94.8) fL MCH (25.6-32.2) pg MCHC (32.2-35.5) g/dL RDW (11.7-14.4) % Plt Count (182-369) x10^3/uL MPV (9.4-12.3) fL Gran % (34.0-71.1) % Immature Gran % (Auto) (0.001-0.429) % Nucleat RBC Rel Count (0.00-0.2) % Eos # (Auto) (0.04-0.36) x10^3/uL Immature Gran # (Auto) (0.001-0.031) x10^3u/L Absolute Lymphs (auto) (1.18-3.74) x10^3/uL Absolute Monos (auto) (0.24-0.86) x10^3/uL Absolute Nucleated RBC (0.00-0.012) x10^3u/L Lymphocytes % (19.3-51.7) % Monocytes % (4.7-12.5) % Eosinophils % (0.7-5.8) % Basophils % (0.1-1.2) % Absolute Granulocytes (1.56-6.13) x10^3/uL Basophils # (0.01-0.08) x10^3/uL Sodium (135-145) mmol/L Potassium (3.5-5.1) mmol/L Chloride (98-107) mmol/L Carbon Dioxide (22-30) mmol/L Anion Gap (5-15) MEQ/L BUN (7-17) mg/dL Creatinine (0.52-1.04) mg/dL Estimated GFR ML/MIN Glucose (74-106) mg/dL Hemoglobin A1c 5.44 (4.5-6.0) % Calcium (8.4-10.2) mg/dL Total Bilirubin (0.2-1.3) mg/dL AST (14-36) U/L ALT (0-35) U/L Alkaline Phosphatase (38-126) U/L Troponin I (0.000-0.033) ng/mL NT-Pro-B Natriuret Pep (<300) pg/mL Serum Total Protein (6.3-8.2) g/dL Albumin (3.5-5.0) g/dL Free T4 1.17 (0.78-2.19) ng/dL TSH 3rd Generation 1.965 (0.470-4.680) mIU/L Urine Color (Yellow) Urine Appearance (Clear) Urine pH (4.6-8.0) Ur Specific [place] (1.005-1.030) Urine Protein (Negative) Urine Glucose (UA) (Negative) mg/dL Urine Ketones (Negative) Urine Blood (Negative) Urine Nitrite (Negative) Urine Bilirubin (Negative) Urine Urobilinogen (0.2) mg/dL Ur Leukocyte Esterase (Negative) U Hyaline Cast (Auto) (0-2) /LPF Urine Microscopic RBC (0-5) /HPF Urine Microscopic WBC (0-5) /HPF Ur Epithelial Cells (None Seen) /HPF Urine Bacteria (None Seen) /HPF Urine Culture Reflexed (NO) 08/30/23 08/30/23 08/30/23 Range/Units 09:09 11:30 17:35 WBC (3.98-10.04) x10^3/uL RBC (3.93-5.22) x10^6/uL Hgb (11.2-15.7) g/dL Hct (34.1-44.9) % MCV (79.4-94.8) fL MCH (25.6-32.2) pg MCHC (32.2-35.5) g/dL RDW (11.7-14.4) % Plt Count (182-369) x10^3/uL MPV (9.4-12.3) fL Gran % (34.0-71.1) % Immature Gran % (Auto) (0.001-0.429) % Nucleat RBC Rel Count (0.00-0.2) % Eos # (Auto) (0.04-0.36) x10^3/uL Immature Gran # (Auto) (0.001-0.031) x10^3u/L Absolute Lymphs (auto) (1.18-3.74) x10^3/uL Absolute Monos (auto) (0.24-0.86) x10^3/uL Absolute Nucleated RBC (0.00-0.012) x10^3u/L Lymphocytes % (19.3-51.7) % Monocytes % (4.7-12.5) % Eosinophils % (0.7-5.8) % Basophils % (0.1-1.2) % Absolute Granulocytes (1.56-6.13) x10^3/uL Basophils # (0.01-0.08) x10^3/uL Sodium (135-145) mmol/L Potassium (3.5-5.1) mmol/L Chloride (98-107) mmol/L Carbon Dioxide (22-30) mmol/L Anion Gap (5-15) MEQ/L BUN (7-17) mg/dL Creatinine (0.52-1.04) mg/dL Estimated GFR ML/MIN Glucose (74-106) mg/dL Hemoglobin A1c (4.5-6.0) % Calcium (8.4-10.2) mg/dL Total Bilirubin (0.2-1.3) mg/dL AST (14-36) U/L ALT (0-35) U/L Alkaline Phosphatase (38-126) U/L Troponin I 0.039 H* 0.040 H* (0.000-0.033) ng/mL NT-Pro-B Natriuret Pep (<300) pg/mL Serum Total Protein (6.3-8.2) g/dL Albumin (3.5-5.0) g/dL Free T4 (0.78-2.19) ng/dL TSH 3rd Generation (0.470-4.680) mIU/L Urine Color Yellow (Yellow) Urine Appearance Clear (Clear) Urine pH 6.5 (4.6-8.0) Ur Specific [place] 1.015 (1.005-1.030) Urine Protein Negative (Negative) Urine Glucose (UA) Negative (Negative) mg/dL Urine Ketones 15 A (Negative) Urine Blood Negative (Negative) Urine Nitrite Negative (Negative) Urine Bilirubin Negative (Negative) Urine Urobilinogen 0.2 (0.2) mg/dL Ur Leukocyte Esterase Negative (Negative) U Hyaline Cast (Auto) NONE SEEN (0-2) /LPF Urine Microscopic RBC 0-2 (0-5) /HPF Urine Microscopic WBC 0-2 (0-5) /HPF Ur Epithelial Cells None Seen (None Seen) /HPF Urine Bacteria None Seen (None Seen) /HPF Urine Culture Reflexed NO (NO) 08/31/23 08/31/23 Range/Units 05:25 05:25 WBC 5.8 (3.98-10.04) x10^3/uL RBC 3.68 L (3.93-5.22) x10^6/uL Hgb 11.5 (11.2-15.7) g/dL Hct 35.6 (34.1-44.9) % MCV 96.7 H (79.4-94.8) fL MCH 31.3 (25.6-32.2) pg MCHC 32.3 (32.2-35.5) g/dL RDW 13.4 (11.7-14.4) % Plt Count 247 (182-369) x10^3/uL MPV 10.3 (9.4-12.3) fL Gran % 64.6 (34.0-71.1) % Immature Gran % (Auto) 0.2 (0.001-0.429) % Nucleat RBC Rel Count 0.0 (0.00-0.2) % Eos # (Auto) 0.12 (0.04-0.36) x10^3/uL Immature Gran # (Auto) 0.01 (0.001-0.031) x10^3u/L Absolute Lymphs (auto) 1.45 (1.18-3.74) x10^3/uL Absolute Monos (auto) 0.44 (0.24-0.86) x10^3/uL Absolute Nucleated RBC 0.00 (0.00-0.012) x10^3u/L Lymphocytes % 25.2 (19.3-51.7) % Monocytes % 7.6 (4.7-12.5) % Eosinophils % 2.1 (0.7-5.8) % Basophils % 0.3 (0.1-1.2) % Absolute Granulocytes 3.72 (1.56-6.13) x10^3/uL Basophils # 0.02 (0.01-0.08) x10^3/uL Sodium 137 (135-145) mmol/L Potassium 3.9 (3.5-5.1) mmol/L Chloride 111 H (98-107) mmol/L Carbon Dioxide 20 L (22-30) mmol/L Anion Gap 10.2 (5-15) MEQ/L BUN 21 H (7-17) mg/dL Creatinine 0.91 (0.52-1.04) mg/dL Estimated GFR 63.8 ML/MIN Glucose 94 (74-106) mg/dL Hemoglobin A1c (4.5-6.0) % Calcium 8.4 (8.4-10.2) mg/dL Total Bilirubin 0.60 (0.2-1.3) mg/dL AST 24 (14-36) U/L ALT 12 (0-35) U/L Alkaline Phosphatase 44 (38-126) U/L Troponin I (0.000-0.033) ng/mL NT-Pro-B Natriuret Pep 4040 (<300) pg/mL Serum Total Protein 6.7 (6.3-8.2) g/dL Albumin 3.8 (3.5-5.0) g/dL Free T4 (0.78-2.19) ng/dL TSH 3rd Generation (0.470-4.680) mIU/L Urine Color (Yellow) Urine Appearance (Clear) Urine pH (4.6-8.0) Ur Specific [place] (1.005-1.030) Urine Protein (Negative) Urine Glucose (UA) (Negative) mg/dL Urine Ketones (Negative) Urine Blood (Negative) Urine Nitrite (Negative) Urine Bilirubin (Negative) Urine Urobilinogen (0.2) mg/dL Ur Leukocyte Esterase (Negative) U Hyaline Cast (Auto) (0-2) /LPF Urine Microscopic RBC (0-5) /HPF Urine Microscopic WBC (0-5) /HPF Ur Epithelial Cells (None Seen) /HPF Urine Bacteria (None Seen) /HPF Urine Culture Reflexed (NO) - Procedures and Test Procedures and Tests throughout Hospitalization: Therapy Orders & Screens 08/30/23 14:28 EKG REPEAT IN AM Comment: Discharge Exam General Appearance: no apparent distress, alert Neurologic Exam: alert, oriented x 3, cooperative, normal mood/affect, nml cere bellar function, sensation nml, No motor deficits Eye Exam: PERRL, EOMI, eyes nml inspection Ears, Nose, Throat Exam: normal ENT inspection, pharynx normal, moist mucous membranes Neck Exam: normal inspection, non-tender, supple, full range of motion Respiratory Exam: normal breath sounds, lungs clear, No respiratory distress Cardiovascular Exam: regular rate/rhythm, normal heart sounds Gastrointestinal/Abdomen Exam: soft, No tenderness, No mass Pelvic Exam: deferred Rectal Exam: deferred Back Exam: normal inspection, normal range of motion, No CVA tenderness, No vertebral tenderness Extremity Exam: normal inspection, normal range of motion Skin Exam: normal color, warm, dry Final Diagnosis/Problem List - Final Discharge Diagnosis/Problem (1) Atrial fibrillation with RVR Current Visit: Yes Status: Acute Code(s): I48.91 - UNSPECIFIED ATRIAL FIBRILLATION (2) Elevated troponin I level Current Visit: Yes Status: Acute Code(s): R79.89 - OTHER SPECIFIED ABNORMAL FINDINGS OF BLOOD CHEMISTRY (3) EWELINA (acute kidney injury) Current Visit: Yes Status: Acute Assessment & Plan: (1) Atrial fibrillation with RVR Current Visit: Yes Status: Acute Assessment & Plan: - In ER gave diltiazem 15mg IV X1, metoprolol 5mg IV x1, and Diltiazem 30mg PO x1 - TELE - Continued a-fib RVR on admission HR 120's - Continue cardizem 30mg PO QID - Cardiology consult - has pacemaker with battery per pt. > 10 yrs - admits to dizziness with standing. - heart healthy diet 08/30 - Converted to NSR last night - Cardizem held by nursing and not gave last night - oral cardizem stopped - awaiting cardiology recs Code(s): I48.91 - UNSPECIFIED ATRIAL FIBRILLATION (2) Elevated troponin I level Current Visit: Yes Status: Acute Assessment & Plan: - trending down, Trop. 0.042, 0.039- trend - denies CP - 2:2 a-fib RVR - cardiology consult - last trop. went up slightly to 0.40 last night Code(s): R79.89 - OTHER SPECIFIED ABNORMAL FINDINGS OF BLOOD CHEMISTRY (3) EWELINA (acute kidney injury) Current Visit: Yes Status: Acute Assessment & Plan: - Creat 1.23- baseline normal - NS @ 50ml/hr gentle hydration d/t heart hx 08/30 - resolved Code(s): N17.9 - ACUTE KIDNEY FAILURE, UNSPECIFIED - Discharge Discharge Date: 08/31/23 Disposition: Home, Self-Care Condition: Fair Prescriptions: New Acetaminophen 325 mg [Tylenol 325 mg] 650 mg PO Q4H PRN PRN tablet PRN Reason: Pain, Fever, Headache Continue Rivaroxaban 10 mg Tablet [Xarelto 10 mg Tablet] 20 mg PO DAILY #30 tablet Sotalol HCl [Sotalol] 120 mg PO BID Alendronate Sodium 70 mg [Fosamax 70 MG] 70 mg PO Q7D@0600 Cyanocobalamin (Vitamin B-12) [Vitamin B-12] 1,000 mcg PO DAILY Cholecalciferol (Vitamin D3) [Vitamin D3] 125 mcg PO DAILY Instructions: Arrhythmias (DC) Additional Instructions: Recommendations from Wellness Guide Dr. Ruiz to continue home medications, and follow up with Dr. Pena for echocardiogram. Follow up with: PAULINE PAUL [Primary Care Provider] - Forms: Discharge Instructions
[2023-08-31 11:46] VITALS: BP 125/70; PULSE 71; RESP 16; TEMP 97.4
--- NOTE | 2023-08-31 12:03 | PCM.CONS ---
History of Present Illness - Date of Consult Date of Encounter: 08/31/23 (10:10 am) Consulting Banquet Cook: KAI DUNLAP MD Requesting Provider: Attending Provider: LELE PERALTA MD Primary Care Provider: PCP: PAULINE PAUL Consent was: Given for this tele-med encounter - Consult Narrative Reason for Consult: Elevated troponin-I, atrial fibrillation with RVR HPI: Patient is a 78F who denies fevers, chills, nausea, vomiting, diarrhea, syncope, presyncope, dysphagia,odynophagia, orthopnea, paroxysmal nocturnal dyspnea, shortness of breath, chest pain, refluxsymptoms, belly pain, dysuria, hematuria, melena, hematochezia, seizures, paralysis, or other neurological changes. All other systems have been reviewed and are negative. cc:: The requesting physician will be sent a copy of the consult. - Past Medical History Past Medical History: Yes Neurological History: Seizures ENT History: Glaucoma Cardiac History: Arrhythmia (Paroxysmal atrial fibrillation) Respiratory History: Asthma, Pneumonia Endocrine Medical History: No Pertinent History Musculoskelatal History: Arthritis GI Medical History: No Pertinent History History: No Pertinent History Pyscho-Social History: No Pertinent History Reproductive Disorders: No Pertinent History - Past Surgical History Past Surgical History: Yes Neuro Surgical History: No Pertinent History Cardiac History: Pacemaker Respiratory Surgery: No Pertinent History GI Surgical History: Cholecystectomy Genitourinary Surgical Hx: No Pertinent History Musculskeletal Surgical Hx: No Pertinent History Female Surgical History: No Pertinent History Other Surgical History: COLPOSCOPY, EYES. 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 coposcopy approx 10-15 yrs ago - Social History Smoking Status: Never smoker Exposure to second hand smoke: No Alcohol: Occasionally Drug Use: none - Social Determinants of Health Will the patient participate in the screening: Yes Do you worry about a steady place to live?: No Do you have any problems with any of the following?: No known problems In the past 12 months,have you had to go without utilities?: No Have you or anyone in your house had to go without enough: No Transportation Issues: No Has anyone in your support network made you feel unsafe?: No Does the patient want assistance with any of the above?: No Medications & Allergies Home Medications: Home Medication List Rivaroxaban 10 mg Tablet [Xarelto 10 mg Tablet] 20 mg PO DAILY #30 tablet 02/02/16 [Rx Confirmed 08/30/23] Sotalol HCl [Sotalol] 120 mg PO BID 12/16/18 [History Confirmed 08/30/23] Alendronate Sodium 70 mg [Fosamax 70 MG] 70 mg PO Q7D@0600 08/30/23 [History Confirmed 08/30/23] Cholecalciferol (Vitamin D3) [Vitamin D3] 125 mcg PO DAILY 08/30/23 [History Confirmed 08/30/23] Cyanocobalamin (Vitamin B-12) [Vitamin B-12] 1,000 mcg PO DAILY 08/30/23 [History Confirmed 08/30/23] Acetaminophen 325 mg [Tylenol 325 mg] 650 mg PO Q4H PRN PRN tablet 08/31/23 [Rx] Allergies/Adverse Reactions: Allergies Allergy/AdvReac Type Severity Reaction Status Date / Time prochlorperazine Allergy Severe Verified 08/30/23 08:41 [From Compazine] codeine Allergy Mild Verified 08/30/23 08:41 Exam - Vitals Vital Signs: Vital Signs - 24 hr Temp Pulse Resp BP BP Pulse Ox 08/31/23 07:00 97.1 F 67 25 H 119/56 99 08/31/23 03:00 97.1 F 62 16 124/58 98 08/30/23 23:12 97.3 F 64 18 106/56 96 08/30/23 20:00 97.9 F 109 H 16 119/63 95 08/30/23 19:52 97.9 F 109 H 16 119/63 95 08/30/23 14:30 97.1 F 123 H 19 115/69 97 08/30/23 14:18 97.1 F 123 H 19 115/69 97 08/30/23 13:30 120 H 20 101/81 98 08/30/23 13:15 128 H 15 100/67 97 08/30/23 13:00 123 H 16 104/86 99 08/30/23 12:45 124 H 13 113/83 99 08/30/23 12:40 100 08/30/23 12:15 123 H 16 105/69 100 08/30/23 12:00 125 H 17 109/69 99 08/30/23 11:45 105 H 13 99/65 98 08/30/23 11:15 78 19 98/75 98 08/30/23 11:12 97 H 21 102/69 98 SpO2: 99 Results Vital Signs: Vital Signs - 24 hr Temp Pulse Resp BP BP Pulse Ox 08/31/23 07:00 97.1 F 67 25 H 119/56 99 08/31/23 03:00 97.1 F 62 16 124/58 98 08/30/23 23:12 97.3 F 64 18 106/56 96 08/30/23 20:00 97.9 F 109 H 16 119/63 95 08/30/23 19:52 97.9 F 109 H 16 119/63 95 08/30/23 14:30 97.1 F 123 H 19 115/69 97 08/30/23 14:18 97.1 F 123 H 19 115/69 97 08/30/23 13:30 120 H 20 101/81 98 08/30/23 13:15 128 H 15 100/67 97 08/30/23 13:00 123 H 16 104/86 99 08/30/23 12:45 124 H 13 113/83 99 08/30/23 12:40 100 08/30/23 12:15 123 H 16 105/69 100 08/30/23 12:00 125 H 17 109/69 99 08/30/23 11:45 105 H 13 99/65 98 08/30/23 11:15 78 19 98/75 98 08/30/23 11:12 97 H 21 102/69 98 Pain Assessment - Last Documented Pain Intensity 0 Intake and Output: Intake & Output 08/28/23 08/29/23 08/30/23 08/31/23 11:59 11:59 11:59 11:59 Intake Total 1300 Balance 1300 Weight 54.431 kg 52.5 kg LAB: I have reviewed the Labs in [place]. Tracing 1 Attestation: I have reviewed this EKG and interpreted as documented below. EKG Narrative: ECGs: 08/31/2023 at 0500: NSR at [address] abnormality. Mild T wave inversion in leads V1 and V2, cannot exclude anterior ischemia. QT 0.436, QTc 0.453. 08/30/2023 at 1057: Atrial fibrillation at [address] and T wave abnormalities. 08/30/2023 at 0832: Atrial fibrillation at 125 bpm with occasional aberrantly conducted complexes. Nonspecific ST abnormality. Telemetry: 08/31/2023: 1110: NSR at 74 bpm. 0723: NSR at 68 bpm. 02/01/2016 TTE: 1) NO REGIONAL WALL MOTION ABNORMALITY. ESTIMATED GLOBAL LEFT VENTRICULAR EJECTION FRACTION AROUND 60%. 2) MILD MITRAL REGURGITATION. 3) MODERATE TRICUSPID REGURGITATION. RIGHT VENTRICULAR SYSTOLIC PRESSURE OF 40 MM OF MERCURY. 4) PACEMAKER ELECTRODE IN THE RIGHT VENTRICLE. Multi-Disciplinary Progress Notes: Multi-Disciplinary Progress Notes 08/30/23 15:32 Pharmacy Note by Chato De Leon Please be aware of possible drug interaction with Xarelto and Cardizem. May increase risk of bleeding. Initialized on 08/30/23 15:32 - END OF NOTE Assessment & Plan (1) Atrial fibrillation with RVR Status: Acute Assessment & Plan: Paroxysmal atrial fibrillation - second bout since sotalol and anticoagulaion started approximately 10 years ago. Both episodes approximately 24 hours or less which represents excellent rhythm control on sotalol. No obvious precipitating factor with current presentation. Recommend continuing Xarelto and sotalol. Follow-up with her [facility] cutter, Dr. Jones. An echocardiogram can be performed to evaluate for any new structural heart heart abnormalities if one has not been done recently. Code(s): I48.91 - UNSPECIFIED ATRIAL FIBRILLATION (2) Elevated troponin I level Status: Acute Assessment & Plan: Elevated troponin-I level - Clinical presentation and minimally elevated and flat levels are not consistent with acute coronary syndrome. Most likely related to her atrial fibrillation with rapid ventricular response. Code(s): R79.89 - OTHER SPECIFIED ABNORMAL FINDINGS OF BLOOD CHEMISTRY (3) Sick sinus syndrome Status: Chronic Assessment & Plan: This would explain her pacemaker placement 25 years ago and the development of her atrial fibrillation at least 10 years ago. Her [facility] cutter has chosen not to replace her pacemaker generator past end of life. Agree with discontinuing diltiazem which was done after her conversion to sinus rhythm. Do not want to add another agent that could potentially cause bradycardia with her nonfunctioning pacemaker. This can be reconsidered if she begins to have more frequent recurrences of her atrial fibrillation (with an increase of sotalol dose vs adding an AV drew blocking agent. Code(s): I49.5 - SICK SINUS SYNDROME (4) EWELINA (acute kidney injury) Status: Resolved Assessment & Plan: Most likely due to volume depletion. Resolved with IVFs. Patient aware she never drinks enough. Denies a recent illness. Patient encouraged to keep better hydrated. Code(s): N17.9 - ACUTE KIDNEY FAILURE, UNSPECIFIED - Encounter Encounter: "The entirety of this encounter was performed via Telemedicine using audio and visual "
[2023-09-06] MEDS ORDERED: Fosamax 70 MG PO SCH (06:00)
== END 2023-08-31 13:04 | disposition home or self-care (01) ==
LOC: ED 08:20 → MED SURG 14:11
PROVIDERS: ADMIT Internal Medicine; ATTEND Internal Medicine
DX: I48.20 Chronic atrial fibrillation, unspecified (principal); R79.89 Other specified abnormal findings of blood chemistry; N17.9 Acute kidney failure, unspecified; I49.5 Sick sinus syndrome; Z79.01 Long term (current) use of anticoagulants; Z79.899 Other long term (current) drug therapy
CPT/HCPCS: 36000; 36415; 80053; 81001; 83036; 83735; 83880; 84439; 84443; 84484; 85025; 93005; 93041; 93268; 94760; 96374; 96375; 99285; 99291; Q3014; A9270-GY; G0378

== ENCOUNTER 2023-12-25 14:59 | Day surgery (SDC) | payer MEDICARE, BC ==
[2023-12-25] MEDS ORDERED: BUPIVACAINE 0.5% VIAL IJ ONE (15:00)
[2023-12-25] MEDS ORDERED: LIDOCAINE HCL 1% AMPUL 5 ML IJ ONE (15:00)
[2023-12-25] MEDS ORDERED: Depo-Medrol 40 MG/ML IM ONE (15:00)
--- NOTE | 2023-12-25 19:01 | XRAY ---
Indication: Right greater trochanter bursa injection. Intraoperative fluoroscopy provided for 10 seconds. Single digital spot image submitted for interpretation demonstrates needle tip projecting lateral to right greater trochanter. Small amount of contrast injected for needle tip placement. Correlate with intraoperative findings/report.
--- NOTE | 2023-12-26 09:30 | XRAY ---
10 seconds of fluoroscopy was used in surgery for a right greater trochanteric bursa injection.
== END 2023-12-25 17:19 | disposition home or self-care (01) ==
LOC: SDC-PAIN 14:59
PROVIDERS: ATTEND Psychiatry & Neurology Pain Medicine
DX: M70.61 Trochanteric bursitis, right hip (principal)
CPT/HCPCS: 20610; 73501; 77002; Q9966